=== PATIENT | female | born 1980 | race African-American/Black ===

== ENCOUNTER 2017-01-27 17:47 | Emergency (ER) | payer MEDICAID ==
[~2017-01-27] VITALS: Ht 162.6 cm; Wt 63.5 kg
[~2017-01-27 17:47] MED LIST: IBUP-2213 PO; ORE25 PO
[2017-01-27 18:00] VITALS: BP 165/131
--- NOTE | 2017-01-27 19:25 | NUR ---
TO ER OF2
--- NOTE | 2017-01-27 19:31 | NUR ---
Patient being evaluated by physician.
[2017-01-27 19:47] VITALS: BP 152/99
--- NOTE | 2017-01-27 19:47 | NUR ---
Patient discharged with v/s stable. Written and verbal after care instructions given and explained. Patient alert, oriented and verbalized understanding of instructions. Ambulatory with steady gait. All questions addressed prior to discharge. ID band removed. Patient advised to follow up with PMD. Rx of Amoxicillin and Phenergan DM given. Patient educated on indication of medication including possible reaction and side effects. Opportunity to ask questions provided and answered.
== END 2017-01-27 19:47 | disposition home or self-care (01) ==
LOC: MED 17:47
DX: J02.9 Acute pharyngitis, unspecified (principal); J45.909 Unspecified asthma, uncomplicated; I10 Essential (primary) hypertension
CPT/HCPCS: 99283